=== PATIENT | female | born 1985 | race Asian ===

== ENCOUNTER 2019-12-13 03:53 | Inpatient (IN) ==
[2019-12-13 04:40] LABS: Hematocrit 33 % (35-47); Hemoglobin 11.4 g/dL (12.0-16.0); Mean Corpuscular HGB Conc 34 g/dL (31-36); Mean Corpuscular Hemoglobin 30 pg (27-31); Mean Corpuscular Volume 88 fL (80-97); Platelet Count 250 10^3/uL (150-450); Red Blood Count 3.77 10^6 /uL (3.70-4.87); Red Cell Distribution Width 13 % (10-15); White Blood Count 7.4 10^3/uL (3.5-10.8)
[2019-12-13] MEDS ORDERED: Lactated Ringers 1000 ml BAG 1,000 ML IV ONE ×2 (04:41→05:28)
[2019-12-13] MEDS ORDERED: OBEPIDURAL 0 ML EPIDURAL ONE (04:42)
[2019-12-13] MEDS ORDERED: Lactated Ringers 1000 ml BAG 1,000 ML IV SCH ×2 (05:00→06:00)
[2019-12-13 05:02] LABS: Urine Benzodiazepine Screen None Detected (None Detect); Urine Cannabinoids Screen None Detected (None Detect); Urine Opiates Screen None Detected (None Detect)
[2019-12-13] MEDS ORDERED: Sodium Citrate/Citric Acid LIQ 15 ML UDC PO PRN (05:28)
[2019-12-13] MEDS ORDERED: Dibucaine 1% OINT 28.35 GM TUBE PR PRN (06:25)
[2019-12-13] MEDS ORDERED: Glycerin ADULT 2.4 gm SUPP PR PRN (06:25)
[2019-12-13] MEDS: Witch Hazel PAD JAR TOPICAL PRN (07:47)
[2019-12-13] MEDS ORDERED: Oxytocin 10 UNITS/ML 1 ML VIAL ONE (09:52)
[2019-12-13] MEDS ORDERED: Lidocaine 1% VIAL 10 MG/ML VIAL ONE (09:52)
[2019-12-14 08:26] LABS: ABS Basophils 0.1 10^3/ul (0-0.2); ABS Lymphocytes 1.3 10^3/ul (1.0-4.8); ABS Monocytes 0.6 10^3/ul (0-0.8); ABS Neutrophils 7.7 10^3/ul (1.5-7.7); Eosinophil % 0.4 %; Hematocrit 33 % (35-47); Hemoglobin 10.9 g/dL (12.0-16.0); Lymphocyte % 13.8 %; Mean Corpuscular HGB Conc 33 g/dL (31-36); Mean Corpuscular Hemoglobin 30 pg (27-31); Mean Corpuscular Volume 88 fL (80-97); Mean Platelet Volume 6.8 fL (7.4-10.4); Platelet Count 261 10^3/uL (150-450); Red Cell Distribution Width 14 % (10-15); White Blood Count 9.7 10^3/uL (3.5-10.8)
[2019-12-15 08:08] VITALS: BP 94/59
[2019-12-15] MEDS: Witch Hazel PAD JAR TOPICAL PRN (11:12)
== END 2019-12-15 11:31 | disposition home or self-care (01) | DRG 807 ==
LOC: MCHOBOUT 03:53 → MCHOB 04:20
PROVIDERS: ADMIT Obstetrics & Gynecology; ATTEND Obstetrics & Gynecology